=== PATIENT | female | born 1975 | race Caucasian/White ===

== ENCOUNTER 2023-01-16 11:31 | Inpatient (IN) | payer BC ==
[2023-01-16] VITALS (69 sets, daily range): BP systolic 82–167; BP diastolic 50–101
[~2023-01-16] VITALS: Ht 167.6 cm; Wt 60.0 kg
[2023-01-16 12:04] LABS: BASO% 0.3 % (0-3); EOS% 2.6 % (0-8); HEMATOCRIT 46.4 % (37.0-47.0); HEMOGLOBIN 15.1 g/dl (12.0-16.0); IMMATURE GRANULOCYTES 0.2 % (0.0-5.0); MEAN CELL VOLUME 89.6 fL CALC (80.0-100.0); MEAN CORPUSCULAR HGB 29.2 pG CALC (26.0-32.0); MEAN CORPUSCULAR HGB CONC 32.5 g/dL CAL (32.0-36.0); MONO% 7.3 % (2-13); NEUT# 3.7 thou/uL (2.00-7.15); NEUT% 57.6 % (42-76); RED BLOOD COUNT 5.18 mill/uL (4.20-5.60); RED CELL DISTRI WIDTH 11.9 % (11.5-15.5)
[2023-01-16 12:20] LABS: INTERNATIONAL NORMALIZED RATIO 1.2 RATIO (0.7-1.3); PROTHROMBIN TIME 11.5 SECONDS (9.0-12.5)
[2023-01-16 12:21] LABS: ALBUMIN 4.8 g/dL (3.2-5.0); ALKALINE PHOSPHATASE 111 u/l (38-126); ANION GAP 18 (6-22 (CALC)); BILIRUBIN, TOTAL 0.7 mg/dL (0.02-1.3); BUN 17 mg/dL (7-17); BUN/CREATININE RATIO 17 (12-20 (CALC)); CARBON DIOXIDE 24 mmol/l (22-30); CHLORIDE 99 mmol/l (95-108); GFR FOR AFR.AMER. > 60 ML/MIN (>=60 (CALC)); GFR OTHER RACES 59 ML/MIN (>=60 (CALC)); MAGNESIUM 1.7 mg/dL (1.6-2.3); POTASSIUM 3.3 mmol/l (3.5-5.1); SGOT/AST 33 u/l (14-36); SODIUM 138 mmol/l (137-146); TOTAL PROTEIN 7.9 g/dL (6.3-8.2)
[2023-01-16 12:52] LABS: TSH, 3RD GENERATION 0.08 uIU/mL (0.47 - 4.68)
[2023-01-16] MEDS ORDERED: XARELTO20 MG PO (13:32)
[2023-01-16] MEDS ORDERED: XANAX0.5 MG PO (13:33)
[2023-01-16] MEDS ORDERED: ELAVIL25 M1 PO (13:33)
[2023-01-16 15:33] LABS: CHOLESTEROL HDL RATIO 4.9 (<4.4 (CALC))
[2023-01-16] MEDS ORDERED: DILAUDID4 MG PO (16:17)
[2023-01-16] MEDS ORDERED: OXTELLAR XR300 MG (16:17)
[2023-01-17] VITALS (26 sets, daily range): BP systolic 83–116; BP diastolic 58–86
[2023-01-17 04:45] LABS: MEAN CELL VOLUME 90.8 fL CALC (80.0-100.0); MEAN CORPUSCULAR HGB 30.4 pG CALC (26.0-32.0); MEAN CORPUSCULAR HGB CONC 33.4 g/dL CAL (32.0-36.0); RED BLOOD COUNT 4.15 mill/uL (4.20-5.60); RED CELL DISTRI WIDTH 12.3 % (11.5-15.5)
[2023-01-17 05:11] LABS: ALKALINE PHOSPHATASE 73 u/l (38-126); ANION GAP 8 (6-22 (CALC)); BILIRUBIN, TOTAL 0.6 mg/dL (0.02-1.3); BUN 11 mg/dL (7-17); BUN/CREATININE RATIO 13 (12-20 (CALC)); CARBON DIOXIDE 25 mmol/l (22-30); CHLORIDE 109 mmol/l (95-108); CREATININE 0.8 mg/dL (0.5-1.0); GFR FOR AFR.AMER. > 60 ML/MIN (>=60 (CALC)); GFR OTHER RACES > 60 ML/MIN (>=60 (CALC)); MAGNESIUM 1.9 mg/dL (1.6-2.3); POTASSIUM 3.7 mmol/l (3.5-5.1); SGOT/AST 26 u/l (14-36); SODIUM 138 mmol/l (137-146)
[2023-01-17 05:13] LABS: ALBUMIN 3.5 g/dL (3.2-5.0); HEMATOCRIT 37.7 % (37.0-47.0); HEMOGLOBIN 12.6 g/dl (12.0-16.0); TOTAL PROTEIN 6.2 g/dL (6.3-8.2)
== END 2023-01-17 12:41 | disposition home or self-care (01) | DRG 309 ==
LOC: ED 11:31 → ICU 13:46
PROVIDERS: Family Medicine; ADMIT Internal Medicine; ATTEND Internal Medicine
DX: I47.1 Supraventricular tachycardia (principal); G93.49 Other encephalopathy; D68.59 Other primary thrombophilia; G90.522 Complex regional pain syndrome I of left lower limb; K31.84 Gastroparesis; Z79.899 Other long term (current) drug therapy; Z86.711 Personal history of pulmonary embolism; Z79.01 Long term (current) use of anticoagulants
CPT/HCPCS: Q9967